=== PATIENT | male | born 1970 | race Caucasian/White ===

== ENCOUNTER → 2018-01-16 | Outpatient (CLI) | payer OTHER ==
[~2018-01-16] MED LIST: IOHEXOL 350 MG/ML 10 ML VIAL (for RAD DIAG) IVCONTRAST ONE
--- NOTE | 2018-01-16 12:40 | RADRPT ---
EXAM DATE/TIME: 01/16/2018 11:54 [facility] COMPARISON: No previous studies available for comparison. INDICATIONS : Weight loss MEDICAL HISTORY : Smoker SURGICAL HISTORY : None. ENCOUNTER: Initial ACUITY: 1 week PAIN SCORE: 0/10 LOCATION: chest FINDINGS: PA and lateral views of the chest demonstrate the lungs to be symmetrically aerated without evidence of mass, infiltrate or effusion. The cardiomediastinal contours are unremarkable. Osseous structure s are intact. CONCLUSION: No acute disease. Bradford Guzman MD on January 16, 2018 at 12:37 Board Certified Radiologist. This report was verified electronically.
--- NOTE | 2018-01-16 15:28 | RADRPT ---
EXAM DATE/TIME: 01/16/2018 12:40 [facility] COMPARISON: No previous studies available for comparison. INDICATIONS : Weight loss,fatigue IV CONTRAST: 96 cc Omnipaque 350 (iohexol) IV ORAL CONTRAST: Prescribed oral contrast ingested. RADIATION DOSE: 6.64 CTDIvol (mGy) MEDICAL HISTORY : None SURGICAL HISTORY : Cholecystectomy. ENCOUNTER: Initial ACUITY: 1 day PAIN SCALE: 0/10 LOCATION: Abdomen TECHNIQUE: Volumetric scanning of the abdomen and pelvis was performed. Using automated exposure control and ad justment of the mA and/or kV according to patient size, radiation dose was kept as low as reasonably achievable to obtain optimal diagnostic quality images. DICOM format image data is available electro nically for review and comparison. FINDINGS: LOWER LUNGS: The visualized lower lungs are clear. LIVER: A. liver is mildly enlarged. There is asymmetric enlargement of the left lobe compared to the right. Centrally within the left hepatic lobe there is a small pleurally marginated hypodense lesion measuri ng 1.5 cm in size. Portal vein is patent. There is no evidence of biliary duct dilatation. Postcholec ystectomy clips are noted. SPLEEN: Normal size without lesion. PANCREAS: Within normal limits. KIDNEYS: Normal in size and shape. There is no mass, stone or hydronephrosis. ADRENAL GLANDS: Within normal limits. VASCULAR: There is no aortic aneurysm. BOWEL/MESENTERY: The stomach, small bowel, and colon demonstrate no acute abnormality. There is no free intraperitone al air or fluid. ABDOMINAL WALL: Within normal limits. RETROPERITONEUM: There is no lymphadenopathy. BLADDER: No wall thickening or mass. REPRODUCTIVE: Within normal limits. INGUINAL: Mildly enlarged lymph nodes are identified in the inguinal region largest is identified in the right inguinal region measuring 1.7 x 1.0 cm in size. MUSCULOSKELETAL: Within normal limits for patient age. CONCLUSION: 1. Hepatomegaly with asymmetric enlargement of the left back lobe. 2. 1.5 cm low density lesion in left hepatic lobe which is too small to characterize. Further evaluat ion with contrast-enhanced MRI should be considered. 3. Mildly enlarged inguinal lymph nodes. 4. No other evidence of suspicious mass, lymphadenopathy or acute process. Jordan Celeste MD on January 16, 2018 at 15:19 Board Certified Radiologist. This report was verified electronically.
== END ==
LOC: HRAD 11:15
PROVIDERS: ATTEND Internal Medicine Hematology
DX: D72.829 Elevated white blood cell count, unspecified (principal)
CPT/HCPCS: 71046; 74177; Q9967